=== PATIENT | female | born 1945 | race African-American/Black ===

== ENCOUNTER 2022-12-26 03:57 | Day surgery (SDC) | payer OTHER ==
[2022-12-19 18:03] VITALS: BMI 44.2
[2022-12-26] MEDS ORDERED: MIDAZOLAM HCL 2 MG/2 ML SINGLE DOSE VIAL ONE (07:59)
[2022-12-26] MEDS ORDERED: PROPOFOL 20 ML ONE (08:12)
[2022-12-26] MEDS ORDERED: LACTATED RINGERS SOLUTION 1,000 ML IV SCH (08:30)
[2022-12-26] MEDS ORDERED: ONDANSETRON 4 MG/2 ML VIAL IVPUSH PRN (08:30)
[2022-12-26] MEDS ORDERED: oxyCODONE HCL 5 MG TABLET PO PRN (08:30)
[2022-12-26 10:14] VITALS: RESP 20; TEMP 97.1
[2022-12-26 12:20] VITALS: BP 151/51; PULSE 60
== END 2022-12-26 12:15 | disposition home or self-care (01) ==
LOC: JASU-SURG 03:57
PROVIDERS: ATTEND Obstetrics & Gynecology
PROC: 0UDB8ZX Extraction of Endometrium, Via Natural or Artificial Opening Endoscopic, Diagnostic (ICD-10-PCS; principal; 2022-12-26 07:30)
DX: N95.0 Postmenopausal bleeding (principal)
CPT/HCPCS: 88305-TC; 93005; 93010; 94760

== ENCOUNTER 2024-06-02 09:04 | Observation (INO) | payer OTHER ==
[2024-06-02] MEDS: ACETAMINOPHEN 325 MG TABLET (FP) PO ONE (10:08)
[2024-06-02] MEDS ORDERED: MORPHINE SULFATE 2 MG/ML SYRINGE ONE (10:35)
[2024-06-02] MEDS: morphine CARPU-JECT 2 MG/1 ML DISP.SYRIN IVPUSH ONE (10:55)
[2024-06-02 11:11] LABS: BASO % 0.8 % (0-2.0); EOS % 1.7 % (0-4.5); HEMATOCRIT 35.5 % (32.4-45.2); HEMOGLOBIN 12.2 GM/dL (10.7-15.3); LYMPH % 9.2 % (8-40); MCH 28.7 pg (25.7-33.7); MCHC 34.3 g/dl (32.0-36.0); MEAN CELL VOLUME 83.9 fl (80-96); MEAN PLT VOLUME 7.5 fl (7.5-11.1); MONO % 8.8 % (3.8-10.2); NEUT % 79.5 % (42.8-82.8); PLATELET COUNT 433 10^3/uL (134-434); RBC 4.23 M/mm3 (3.60-5.2); RDW 14.2 % (11.6-15.6); WHITE BLOOD COUNT 10.3 K/mm3 (4.0-10.0)
[2024-06-02 11:27] LABS: INR 1.15 (0.83-1.09); PROTHROMBIN TIME (PATIENT) 12.9 SEC (9.7-13.0)
[2024-06-02 11:28] LABS: POTASSIUM 4.6 mmol/L (3.5-5.1)
[2024-06-02 11:29] LABS: ACTIVATED PTT 34.7 SECONDS (25.2-36.5)
[2024-06-02 11:30] LABS: ALBUMIN 3.3 g/dl (3.4-5.0); CALCIUM 9.6 mg/dL (8.5-10.1)
[2024-06-02 11:31] LABS: BLOOD UREA NITROGEN 34.8 mg/dL (7-18)
[2024-06-02 11:35] LABS: BILIRUBIN,TOTAL 0.6 mg/dL (0.2-1); TOT PROT 7.6 g/dl (6.4-8.2)
[2024-06-02 11:57] LABS: ERYTHROCYTE SEDIMENTATION RATE 69 mm/hr (0-30)
[2024-06-02 13:38] LABS: HIV INTERPRETATION NEGATIVE (NEGATIVE)
[2024-06-02] MEDS: VANCOMYCIN PREMIX 1.75 GM 1,750 MG/350 ML PIGGYBACK IVPB ONE (14:40)
[2024-06-02] MEDS ORDERED: PIPERACILLIN/TAZOB 3.375 GM 3.375 GM in DEXTROSE 5%-WATER - 50 ML IVPB SCH (14:45)
[2024-06-02] MEDS: PIPERACILLIN/TAZOB 3.375 GM 50 ML IVPB SCH (17:25)
[2024-06-02 17:30] VITALS: BMI 41.2
[2024-06-02] MEDS: ACETAMINOPHEN 325 MG TABLET (FP) PO PRN (17:34)
[2024-06-02] MEDS: HEPARIN NA (PORCINE) 5,000 UNITS/ML 1ML VIAL SQ SCH (22:54)
[2024-06-03] MEDS: ASPIRIN 81 MG CHEWABLE TABLETS PO SCH (09:10)
[2024-06-03] MEDS: NIFEdipine E.R 60 MG TABLET PO SCH (09:11)
[2024-06-03 09:25] LABS: HEMATOCRIT 31.3 % (32.4-45.2); HEMOGLOBIN 10.9 GM/dL (10.7-15.3); MCH 29.3 pg (25.7-33.7); MCHC 34.8 g/dl (32.0-36.0); MEAN CELL VOLUME 84.2 fl (80-96); MEAN PLT VOLUME 7.3 fl (7.5-11.1); PLATELET COUNT 394 10^3/uL (134-434); RBC 3.72 M/mm3 (3.60-5.2); RDW 14.3 % (11.6-15.6); WHITE BLOOD COUNT 9.9 K/mm3 (4.0-10.0)
[2024-06-03 09:46] LABS: POTASSIUM 3.4 mmol/L (3.5-5.1)
[2024-06-03] MEDS ORDERED: SPIRONOLACTONE 25 MG TABLET PO SCH (10:00)
[2024-06-03] MEDS ORDERED: CHLORTHALIDONE 50 MG TABLET PO SCH (10:00)
[2024-06-03 10:01] LABS: BLOOD UREA NITROGEN 40.4 mg/dL (7-18)
[2024-06-03 10:04] LABS: ALBUMIN 3.2 g/dl (3.4-5.0); CALCIUM 9.1 mg/dL (8.5-10.1)
[2024-06-03 10:07] LABS: CREATININE 2.1 mg/dL (0.55-1.3); TOT PROT 6.8 g/dl (6.4-8.2)
[2024-06-03 10:08] LABS: BILIRUBIN,TOTAL 0.7 mg/dL (0.2-1); MAGNESIUM 1.7 mg/dL (1.8-2.4); PHOSPHOROUS 3.9 mg/dL (2.5-4.9)
[2024-06-03] MEDS: BACITRACIN ZINC 15 GM TUBE TOPICAL OINTMENT TP SCH (15:43)
[2024-06-04 09:16] LABS: BASO % 0.4 % (0-2.0); EOS % 3.7 % (0-4.5); HEMATOCRIT 32.3 % (32.4-45.2); HEMOGLOBIN 10.6 GM/dL (10.7-15.3); MCHC 32.8 g/dl (32.0-36.0); MEAN CELL VOLUME 85.4 fl (80-96); MEAN PLT VOLUME 7.1 fl (7.5-11.1); MONO % 9.5 % (3.8-10.2); NEUT % 74.4 % (42.8-82.8); PLATELET COUNT 379 10^3/uL (134-434); RBC 3.78 M/mm3 (3.60-5.2); RDW 13.7 % (11.6-15.6); WHITE BLOOD COUNT 8.2 K/mm3 (4.0-10.0)
[2024-06-04 09:17] LABS: POTASSIUM 3.6 mmol/L (3.5-5.1)
[2024-06-04 09:22] LABS: CALCIUM 8.9 mg/dL (8.5-10.1)
[2024-06-04 09:23] LABS: ALBUMIN 2.9 g/dl (3.4-5.0); BLOOD UREA NITROGEN 32.2 mg/dL (7-18)
[2024-06-04 09:26] LABS: CREATININE 1.5 mg/dL (0.55-1.3)
[2024-06-04 09:27] LABS: BILIRUBIN,TOTAL 0.5 mg/dL (0.2-1)
[2024-06-04 09:28] LABS: TOT PROT 6.4 g/dl (6.4-8.2)
[2024-06-04 14:50] VITALS: BP 138/53; PULSE 77; RESP 20; TEMP 97.7
== END 2024-06-04 21:08 | disposition home or self-care (01) ==
LOC: JER 09:04 → JERBED 14:29 → J7W 15:45
PROVIDERS: ADMIT Internal Medicine; ATTEND Nurse Practitioner Family
PROC: 3E023GC Introduction of Other Therapeutic Substance into Muscle, Percutaneous Approach (ICD-10-PCS; principal; 2024-06-02)
PROC: 3E03329 Introduction of Other Anti-infective into Peripheral Vein, Percutaneous Approach (ICD-10-PCS; 2024-06-02)
PROC: 3E033NZ Introduction of Analgesics, Hypnotics, Sedatives into Peripheral Vein, Percutaneous Approach (ICD-10-PCS; 2024-06-02)
DX: L03.116 Cellulitis of left lower limb (principal); N17.9 Acute kidney failure, unspecified; I10 Essential (primary) hypertension; E66.9 Obesity, unspecified
CPT/HCPCS: 36415; 73610-TC-LT-FY; 73630-TC-LT; 80053; 82962; 83735; 84100; 85025; 85027; 85610; 85651; 85730; 86140; 86803; 87040; 87081; 87389; 96365; 96367; 96372; 96375; 97116-GP; 97161-GP; 99285-25; G0378; G0480; J1644; J3370

== ENCOUNTER 2024-06-13 15:14 | Inpatient (IN) | payer OTHER ==
[2024-06-13 17:59] LABS: HEMATOCRIT 33.7 % (32.4-45.2); HEMOGLOBIN 10.9 GM/dL (10.7-15.3); MCH 27.6 pg (25.7-33.7); MCHC 32.4 g/dl (32.0-36.0); MEAN CELL VOLUME 85.2 fl (80-96); MEAN PLT VOLUME 7.6 fl (7.5-11.1); PLATELET COUNT 457 10^3/uL (134-434); RBC 3.95 M/mm3 (3.60-5.2); RDW 14.3 % (11.6-15.6)
[2024-06-13 18:13] LABS: POTASSIUM 4.1 mmol/L (3.5-5.1)
[2024-06-13 18:15] LABS: ALBUMIN 3.1 g/dl (3.4-5.0); BLOOD UREA NITROGEN 35.7 mg/dL (7-18); CALCIUM 9.9 mg/dL (8.5-10.1)
[2024-06-13 18:19] LABS: CREATININE 1.6 mg/dL (0.55-1.3)
[2024-06-13 18:20] LABS: BILIRUBIN,TOTAL 0.6 mg/dL (0.2-1); TOT PROT 7.2 g/dl (6.4-8.2)
[2024-06-13 18:39] LABS: ANISOCYTOSIS 2+; MACROCYTOSIS 0
[2024-06-13] MEDS ORDERED: MORPHINE SULFATE 2 MG/ML SYRINGE ONE (19:26)
[2024-06-13] MEDS: morphine SULFATE 4 MG/ML VIAL IVPUSH ONE (19:40)
[2024-06-13] MEDS ORDERED: HEPARIN NA (PORCINE) 5,000 UNITS/ML 1ML VIAL ONE (22:29)
[2024-06-13] MEDS: HEPARIN NA (PORCINE) 5,000 UNITS/ML 1ML VIAL SQ SCH (22:44)
[2024-06-13] MEDS ORDERED: PIPERACILLIN/TAZOB 3.375 GM 3.375 GM/50 ML BAG IVPB ONE (23:41)
[2024-06-13] MEDS: PIPERACILLIN/TAZOB 3.375 GM 3.375 GM/50 ML BAG IVPB ONE (23:58)
[2024-06-13] MEDS: SODIUM CHLORIDE 1,000 ML IV SCH (23:58)
[2024-06-14] MEDS: SODIUM CHLORIDE 1,000 ML IV SCH ×2 (00:15→15:26)
[2024-06-14] MEDS: VANCOMYCIN PREMIX 1.5 GM 1,500 MG/300 ML BAG IVPB ONE (00:38)
[2024-06-14 02:17] LABS: EPI CELLS >36 /uL (0-25.1); HYALINE CASTS 66 /uL (0-3.1); PH,URINE 7.5 (5.0-8.0); URINE APPEARANCE CLOUDY; URINE BACTERIA >9,000 /uL (0-1359); URINE BILIRUBIN NEGATIVE (NEGATIVE); URINE COLOR YELLOW; URINE GLUCOSE (UA) NEGATIVE (NEGATIVE); URINE KETONE NEGATIVE (NEGATIVE); URINE LEUK ESTERASE 2+ (NEGATIVE); URINE NITRITE NEGATIVE (NEGATIVE); URINE PROTEIN 1+ (NEGATIVE); URINE RBC 7 /uL (0-23.9); URINE UROBILINOGEN 0.2 mg/dL (0.2-1.0); URINE WBC 56 /uL (0-25.8)
[2024-06-14] MEDS: ACETAMINOPHEN 1000 MG/100 ML BAG IVPB PRN (02:46)
[2024-06-14 02:50] VITALS: BMI 41.8
[2024-06-14 04:18] LABS: URINE CRYSTALS MODERATE /hpf
[2024-06-14] MEDS: PIPERACILLIN/TAZOB 3.375 GM 50 ML IVPB SCH (09:12)
[2024-06-14] MEDS: NIFEdipine E.R 60 MG TABLET PO SCH (09:12)
[2024-06-14 10:59] LABS: MCH 27.6 pg (25.7-33.7); MCHC 32.1 g/dl (32.0-36.0); MEAN PLT VOLUME 7.5 fl (7.5-11.1); PLATELET COUNT 438 10^3/uL (134-434); RBC 3.61 M/mm3 (3.60-5.2); WHITE BLOOD COUNT 8.8 K/mm3 (4.0-10.0)
[2024-06-14 11:40] LABS: POTASSIUM 3.8 mmol/L (3.5-5.1)
[2024-06-14 12:00] LABS: ALBUMIN 2.8 g/dl (3.4-5.0)
[2024-06-14 12:01] LABS: BLOOD UREA NITROGEN 34.2 mg/dL (7-18)
[2024-06-14 12:02] LABS: BILIRUBIN,TOTAL 0.6 mg/dL (0.2-1); PHOSPHOROUS 3.7 mg/dL (2.5-4.9)
[2024-06-14 12:04] LABS: CREATININE 1.5 mg/dL (0.55-1.3)
[2024-06-14 12:05] LABS: TOT PROT 6.2 g/dl (6.4-8.2)
[2024-06-14] MEDS: CEFTRIAXONE 1 G/50 ML PREMIX 50 ML IVPB SCH (15:26)
[2024-06-14] MEDS ORDERED: VANCOMYCIN PREMIX 1.5 GM 1,500 MG/300 ML BAG IVPB SCH (22:00)
[2024-06-15] MEDS: ACETAMINOPHEN 1000 MG/100 ML BAG IVPB PRN (07:37)
[2024-06-15 08:37] LABS: HEMATOCRIT 29.9 % (32.4-45.2); HEMOGLOBIN 9.9 GM/dL (10.7-15.3); MCH 27.9 pg (25.7-33.7); MCHC 33.2 g/dl (32.0-36.0); MEAN CELL VOLUME 83.9 fl (80-96); MEAN PLT VOLUME 7.2 fl (7.5-11.1); PLATELET COUNT 429 10^3/uL (134-434); RBC 3.56 M/mm3 (3.60-5.2); RDW 14.3 % (11.6-15.6); WHITE BLOOD COUNT 8.5 K/mm3 (4.0-10.0)
[2024-06-15] MEDS: VANCOMYCIN PREMIX 1.5 GM 1,500 MG/300 ML BAG IVPB SCH (09:26)
[2024-06-15] MEDS: PIPERACILLIN/TAZOB 3.375 GM 50 ML IVPB SCH (09:27)
[2024-06-15] MEDS: LORazepam 2 MG TABLET PO ONE (17:04)
[2024-06-15 19:05] LABS: INR 1.17 (0.83-1.09); PROTHROMBIN TIME (PATIENT) 13.4 SEC (9.7-13.0)
[2024-06-15 21:24] LABS: POTASSIUM 3.6 mmol/L (3.5-5.1)
[2024-06-15 21:25] LABS: BLOOD UREA NITROGEN 18.8 mg/dL (7-18); CALCIUM 8.9 mg/dL (8.5-10.1)
[2024-06-15 21:29] LABS: CREATININE 1.3 mg/dL (0.55-1.3)
[2024-06-16 08:10] LABS: BASO % 0.4 % (0-2.0); EOS % 5.1 % (0-4.5); HEMATOCRIT 32.1 % (32.4-45.2); HEMOGLOBIN 10.4 GM/dL (10.7-15.3); LYMPH % 10.6 % (8-40); MCH 27.6 pg (25.7-33.7); MCHC 32.5 g/dl (32.0-36.0); MEAN CELL VOLUME 84.8 fl (80-96); MONO % 9.2 % (3.8-10.2); NEUT % 74.7 % (42.8-82.8); PLATELET COUNT 442 10^3/uL (134-434); RBC 3.78 M/mm3 (3.60-5.2); RDW 14.4 % (11.6-15.6); WHITE BLOOD COUNT 9.3 K/mm3 (4.0-10.0)
[2024-06-16 08:28] LABS: POTASSIUM 3.5 mmol/L (3.5-5.1)
[2024-06-16 08:30] LABS: ALBUMIN 2.8 g/dl (3.4-5.0); BLOOD UREA NITROGEN 14.4 mg/dL (7-18); CALCIUM 9.4 mg/dL (8.5-10.1); MAGNESIUM 1.6 mg/dL (1.8-2.4)
[2024-06-16 08:34] LABS: BILIRUBIN,TOTAL 0.5 mg/dL (0.2-1); CREATININE 1.2 mg/dL (0.55-1.3); PHOSPHOROUS 3.1 mg/dL (2.5-4.9); TOT PROT 6.5 g/dl (6.4-8.2)
[2024-06-16] MEDS: ACETAMINOPHEN 1000 MG/100 ML BAG IVPB PRN (09:13)
[2024-06-16] MEDS ORDERED: LIDOCAINE HCL 1%, 10 MG/ML (20ML VIAL) ONE ×2 (14:34→16:16)
[2024-06-16] MEDS ORDERED: HEPARIN NA (PORCINE) 5,000 UNITS/ML 1ML VIAL ONE ×2 (14:34→16:16)
[2024-06-16] MEDS ORDERED: ONDANSETRON 4 MG/2 ML VIAL IVPUSH PRN ×2 (16:54→19:22)
[2024-06-16] MEDS ORDERED: LACTATED RINGERS SOLUTION 1,000 ML IV SCH ×2 (17:00→19:22)
[2024-06-16] MEDS ORDERED: PROPOFOL 60 ML ONE (17:30)
[2024-06-16] MEDS ORDERED: MIDAZOLAM HCL 2 MG/2 ML SINGLE DOSE VIAL ONE (17:30)
[2024-06-16] MEDS: LIDOCAINE HCL 1%, 10 MG/ML (20ML VIAL) INF ONE (18:00)
[2024-06-16] MEDS ORDERED: ACETAMINOPHEN 1000 MG/100 ML BAG IVPB PRN (19:22)
[2024-06-16] MEDS: MAGNESIUM 2GM/50ML STERILE WATER IVPB IVPB ONE ×2 (19:24→19:26)
[2024-06-16] MEDS ORDERED: CLOPIDOGREL BISULFATE 75 MG TABLET (FP) ONE (19:39)
[2024-06-16] MEDS ORDERED: ACETAMINOPHEN 325 MG TABLET (FP) PO PRN ×2 (19:45)
[2024-06-16] MEDS: CLOPIDOGREL BISULFATE 75 MG TABLET (FP) PO SCH (20:21)
[2024-06-16] MEDS: SODIUM CHLORIDE 1,000 ML IV SCH (20:29)
[2024-06-16] MEDS: HEPARIN NA (PORCINE) 5,000 UNITS/ML 1ML VIAL SQ SCH (22:16)
[2024-06-17] MEDS: oxyCODONE HCL 5 MG TABLET PO PRN ×2 (01:44→10:19)
[2024-06-17 09:00] VITALS: RESP 18
[2024-06-17 09:26] LABS: HEMATOCRIT 31.5 % (32.4-45.2); HEMOGLOBIN 10.2 GM/dL (10.7-15.3); MCH 27.8 pg (25.7-33.7); MCHC 32.5 g/dl (32.0-36.0); MEAN CELL VOLUME 85.5 fl (80-96); MEAN PLT VOLUME 7.1 fl (7.5-11.1); PLATELET COUNT 445 10^3/uL (134-434); RBC 3.68 M/mm3 (3.60-5.2); WHITE BLOOD COUNT 12.3 K/mm3 (4.0-10.0)
[2024-06-17 09:44] LABS: POTASSIUM 4.5 mmol/L (3.5-5.1)
[2024-06-17 09:46] LABS: CALCIUM 9.1 mg/dL (8.5-10.1)
[2024-06-17 09:47] LABS: BLOOD UREA NITROGEN 15.8 mg/dL (7-18)
[2024-06-17 09:50] LABS: CREATININE 1.2 mg/dL (0.55-1.3)
[2024-06-17] MEDS ORDERED: ASPIRIN 81 MG CHEWABLE TABLETS PO SCH (10:00)
[2024-06-17] MEDS: CEFTRIAXONE 1 G/50 ML PREMIX 50 ML IVPB SCH (10:21)
[2024-06-17] MEDS: ASPIRIN 81 MG CHEWABLE TABLETS PO SCH (10:22)
[2024-06-17] MEDS: NIFEdipine E.R 60 MG TABLET PO SCH (10:22)
[2024-06-17] MEDS: SILVER SULFADIAZINE 1% TOP CREAM 400 GM JAR TP SCH (10:39)
[2024-06-17] MEDS ORDERED: DOXYCYCLINE HYCLATE 100 MG CAPSULE PO SCH (12:00)
[2024-06-17] MEDS: DOXYCYCLINE HYCLATE 100 MG CAPSULE PO SCH (17:23)
[2024-06-17] MEDS: AMOX TR/POT CLAV 875MG/125MG TABLETS (FP) PO SCH (17:55)
[2024-06-18 14:38] VITALS: BP 133/51; PULSE 66; TEMP 97.5
== END 2024-06-18 17:23 | disposition home or self-care (01) | DRG 253 ==
LOC: JER 15:14 → JERBED 19:10 → J6S 06-14 02:05 → OBSVTOIN 06-16 14:25
PROVIDERS: ADMIT Internal Medicine; ATTEND Internal Medicine
PROC: X2K New Technology, Cardiovascular System, Bypass (ICD-10-PCS; principal; 2024-06-16 12:15)
DX: I73.9 Peripheral vascular disease, unspecified (principal); L03.116 Cellulitis of left lower limb; Z68.41 Body mass index [BMI] 40.0-44.9, adult; I70.292 Other atherosclerosis of native arteries of extremities, left leg; I77.1 Stricture of artery; I12.9 Hypertensive chronic kidney disease with stage 1 through stage 4 chronic kidney disease, or unspecified chronic kidney disease; N18.9 Chronic kidney disease, unspecified; E66.9 Obesity, unspecified; L97.529 Non-pressure chronic ulcer of other part of left foot with unspecified severity; I99.8 Other disorder of circulatory system
CPT/HCPCS: 36415; 73718-TC-LT; 75635-TC; 76000-TC-FY; 76775-TC; 80048; 80053; 81003; 82550; 82553; 83735; 84100; 85025; 85027; 85610; 85651; 86140; 87070; 87186; 87205; 93005; 93010; 93925-TC; 94760; 99285-25; C1760; G0378; G0463-25; J0131; J1644; Q9967

== ENCOUNTER 2024-08-15 10:53 | Observation (INO) | payer OTHER ==
[2024-08-15] MEDS ORDERED: ONDANSETRON 4 MG/2 ML VIAL ONE (13:05)
[2024-08-15 13:09] LABS: BASO % 0.3 % (0-2.0); EOS % 2.4 % (0-4.5); HEMATOCRIT 22.6 % (32.4-45.2); LYMPH % 16.2 % (8-40); MCH 23.3 pg (25.7-33.7); MCHC 30.4 g/dl (32.0-36.0); MEAN CELL VOLUME 76.8 fl (80-96); MEAN PLT VOLUME 6.9 fl (7.5-11.1); MONO % 11.3 % (3.8-10.2); NEUT % 69.8 % (42.8-82.8); PLATELET COUNT 419 10^3/uL (134-434); RBC 2.94 M/mm3 (3.60-5.2); RDW 18.2 % (11.6-15.6); WHITE BLOOD COUNT 8.1 K/mm3 (4.0-10.0)
[2024-08-15] MEDS: ONDANSETRON 4 MG/2 ML VIAL IVPUSH ONE (13:13)
[2024-08-15] MEDS: SODIUM CHLORIDE 0.9% 1000 ML INFUS.BAG IV ONE (13:13)
[2024-08-15 13:16] LABS: POTASSIUM 4.5 mmol/L (3.5-5.1)
[2024-08-15 13:18] LABS: CALCIUM 9.3 mg/dL (8.5-10.1)
[2024-08-15 13:19] LABS: BLOOD UREA NITROGEN 23.4 mg/dL (7-18)
[2024-08-15 13:20] LABS: HEMOGLOBIN 6.9 GM/dL (10.7-15.3)
[2024-08-15 13:22] LABS: CREATININE 1.5 mg/dL (0.55-1.3)
[2024-08-15 13:23] LABS: BILIRUBIN,TOTAL 0.3 mg/dL (0.2-1); TOT PROT 6.6 g/dl (6.4-8.2)
[2024-08-15 16:03] LABS: EPI CELLS 4 /uL (0-25.1); HYALINE CASTS 0 /uL (0-3.1); PH,URINE 6.5 (5.0-8.0); URINE APPEARANCE CLEAR; URINE BACTERIA >9,000 /uL (0-1359); URINE BILIRUBIN NEGATIVE (NEGATIVE); URINE COLOR YELLOW; URINE GLUCOSE (UA) NEGATIVE (NEGATIVE); URINE KETONE NEGATIVE (NEGATIVE); URINE LEUK ESTERASE 2+ (NEGATIVE); URINE NITRITE NEGATIVE (NEGATIVE); URINE PROTEIN TRACE (NEGATIVE); URINE RBC 30 /uL (0-23.9); URINE UROBILINOGEN 0.2 mg/dL (0.2-1.0); URINE WBC 373 /uL (0-25.8)
[2024-08-15] MEDS: CEFTRIAXONE 1 GM in DEXTROSE 5%-WATER - 100 ML IVPB ONE (17:15)
[2024-08-15] MEDS ORDERED: CEFTRIAXONE 1 G/50 ML PREMIX 50 ML IVPB ONE (17:16)
[2024-08-15] MEDS ORDERED: PANTOPRAZOLE SODIUM 40 MG/100 ML BAG IVPB ONE (21:56)
[2024-08-15] MEDS ORDERED: ATORVASTATIN CA 40 MG TABLET (FP) ONE (21:56)
[2024-08-15] MEDS: ATORVASTATIN CA 40 MG TABLET (FP) PO SCH (22:06)
[2024-08-15] MEDS: PANTOPRAZOLE SODIUM 40 MG VIAL IVPUSH SCH (22:07)
[2024-08-16 07:24] LABS: BASO % 0.2 % (0-2.0); EOS % 2.1 % (0-4.5); HEMATOCRIT 23.9 % (32.4-45.2); HEMOGLOBIN 7.4 GM/dL (10.7-15.3); LYMPH % 15.6 % (8-40); MCH 24.3 pg (25.7-33.7); MCHC 31.2 g/dl (32.0-36.0); MEAN CELL VOLUME 77.8 fl (80-96); MONO % 9.3 % (3.8-10.2); NEUT % 72.8 % (42.8-82.8); PLATELET COUNT 358 10^3/uL (134-434); RBC 3.07 M/mm3 (3.60-5.2); RDW 18.8 % (11.6-15.6)
[2024-08-16 07:36] LABS: INR 1.15 (0.83-1.09); PROTHROMBIN TIME (PATIENT) 12.9 SEC (9.7-13.0)
[2024-08-16 07:39] LABS: CALCIUM 8.7 mg/dL (8.5-10.1)
[2024-08-16 07:40] LABS: ALBUMIN 2.8 g/dl (3.4-5.0); MAGNESIUM 1.8 mg/dL (1.8-2.4)
[2024-08-16 07:43] LABS: CREATININE 1.4 mg/dL (0.55-1.3); PHOSPHOROUS 3.4 mg/dL (2.5-4.9)
[2024-08-16 07:44] LABS: BILIRUBIN,TOTAL 0.6 mg/dL (0.2-1)
[2024-08-16] MEDS ORDERED: PANTOPRAZOLE SODIUM 40 MG VIAL ONE (09:28)
[2024-08-16] MEDS: NIFEdipine E.R. 90 MG TABLET PO SCH (09:35)
[2024-08-16] MEDS ORDERED: COLLAGENASE CLOSTRIDIUM HIST. 30 GRAMS TUBE TP SCH (10:00)
[2024-08-17 10:13] LABS: BASO % 0.4 % (0-2.0); EOS % 2.9 % (0-4.5); HEMATOCRIT 25.1 % (32.4-45.2); HEMOGLOBIN 7.8 GM/dL (10.7-15.3); LYMPH % 12.5 % (8-40); MCH 24.4 pg (25.7-33.7); MEAN CELL VOLUME 78.8 fl (80-96); MEAN PLT VOLUME 6.8 fl (7.5-11.1); MONO % 8.8 % (3.8-10.2); NEUT % 75.4 % (42.8-82.8); PLATELET COUNT 372 10^3/uL (134-434); RBC 3.18 M/mm3 (3.60-5.2); RDW 18.2 % (11.6-15.6); WHITE BLOOD COUNT 9.5 K/mm3 (4.0-10.0)
[2024-08-17 10:42] LABS: POTASSIUM 3.9 mmol/L (3.5-5.1)
[2024-08-17 10:51] LABS: CALCIUM 8.9 mg/dL (8.5-10.1)
[2024-08-17 10:52] LABS: ALBUMIN 2.8 g/dl (3.4-5.0); BLOOD UREA NITROGEN 15.2 mg/dL (7-18); MAGNESIUM 1.9 mg/dL (1.8-2.4)
[2024-08-17 10:55] LABS: CREATININE 1.4 mg/dL (0.55-1.3)
[2024-08-17 10:56] LABS: BILIRUBIN,TOTAL 0.6 mg/dL (0.2-1); TOT PROT 6.2 g/dl (6.4-8.2)
[2024-08-17] MEDS: PANTOPRAZOLE 40 MG TABLET PO SCH (11:07)
[2024-08-17] MEDS: CEFTRIAXONE 1 G/50 ML PREMIX 50 ML IVPB SCH (11:08)
[2024-08-17 16:14] VITALS: BMI 39.5
[2024-08-17 19:34] VITALS: RESP 18
[2024-08-18 10:03] LABS: BASO % 0.3 % (0-2.0); EOS % 1.7 % (0-4.5); HEMATOCRIT 26.3 % (32.4-45.2); HEMOGLOBIN 8.2 GM/dL (10.7-15.3); LYMPH % 4.6 % (8-40); MCH 24.4 pg (25.7-33.7); MCHC 31.2 g/dl (32.0-36.0); MEAN CELL VOLUME 77.9 fl (80-96); MEAN PLT VOLUME 7.1 fl (7.5-11.1); MONO % 7.2 % (3.8-10.2); NEUT % 86.2 % (42.8-82.8); PLATELET COUNT 372 10^3/uL (134-434); RBC 3.38 M/mm3 (3.60-5.2); RDW 19.1 % (11.6-15.6); WHITE BLOOD COUNT 7.5 K/mm3 (4.0-10.0)
[2024-08-18 10:12] LABS: POTASSIUM 4.3 mmol/L (3.5-5.1)
[2024-08-18 10:15] LABS: CALCIUM 9.2 mg/dL (8.5-10.1)
[2024-08-18 10:16] LABS: BLOOD UREA NITROGEN 14.8 mg/dL (7-18)
[2024-08-18 10:19] LABS: CREATININE 1.6 mg/dL (0.55-1.3)
[2024-08-18 10:20] LABS: BILIRUBIN,TOTAL 0.5 mg/dL (0.2-1)
[2024-08-18 10:36] VITALS: PULSE 97
[2024-08-18] MEDS: ASPIRIN COATED 81 MG TABLET.EC PO SCH (10:44)
[2024-08-18 12:40] LABS: ALBUMIN 3.1 g/dl (3.4-5.0); TOT PROT 6.7 g/dl (6.4-8.2)
[2024-08-18 15:15] VITALS: BP 158/63; TEMP 98.1
[2024-08-18] MEDS: SODIUM CHLORIDE 0.9% 500 ML INFUS.BAG IV ONE (16:31)
== END 2024-08-18 17:29 | disposition home or self-care (01) ==
LOC: JER 10:53 → JERBED 16:08 → J6W 08-16 20:11
PROVIDERS: ADMIT Internal Medicine; ATTEND Internal Medicine
PROC: 3E0337Z Introduction of Electrolytic and Water Balance Substance into Peripheral Vein, Percutaneous Approach (ICD-10-PCS; 2024-08-15)
PROC: 3E03329 Introduction of Other Anti-infective into Peripheral Vein, Percutaneous Approach (ICD-10-PCS; 2024-08-15)
PROC: 0DJ08ZZ Inspection of Upper Intestinal Tract, Via Natural or Artificial Opening Endoscopic (ICD-10-PCS; principal; 2024-08-16 13:00)
DX: K92.2 Gastrointestinal hemorrhage, unspecified (principal); D64.9 Anemia, unspecified; K92.1 Melena; K44.9 Diaphragmatic hernia without obstruction or gangrene; K26.9 Duodenal ulcer, unspecified as acute or chronic, without hemorrhage or perforation; N39.0 Urinary tract infection, site not specified; I10 Essential (primary) hypertension; E78.5 Hyperlipidemia, unspecified; L97.529 Non-pressure chronic ulcer of other part of left foot with unspecified severity; Z79.02 Long term (current) use of antithrombotics/antiplatelets
CPT/HCPCS: 36415; 36430; 80048; 80053; 81003; 82272; 83605; 83690; 83735; 84100; 85025; 85610; 86850; 86900; 86901; 86922; 87086; 87186; 93005; 93010; 93306-TC; 94760; 96365; 96375; 99291; G0378; P9058

== ENCOUNTER 2025-01-04 05:21 | Day surgery (SDC) | payer OTHER ==
[~2025-01-04 05:21] MED LIST: ACETAMINOPHEN 325 MG TABLET (FP) PO PRN
[2025-01-04] MEDS ORDERED: BUPIVACAINE HCL/PF 0.75% 10 ML VIAL ONE (07:45)
[2025-01-04] MEDS ORDERED: PHENYLEPHRINE/KETOROLAC 4 ML VIAL IO ONE (07:45)
[2025-01-04] MEDS ORDERED: LIDOCAINE HCL/PF 2% SDV 5ML VIAL ONE (07:45)
[2025-01-04] MEDS ORDERED: LIDOCAINE HCL/PF 1% SDV 5ML VIAL ONE (07:45)
[2025-01-04] MEDS ORDERED: POVIDONE-IODINE 5% OPHTHALMIC PREP 30 ML SOLUTION ONE (07:45)
[2025-01-04 10:13] VITALS: BMI 36.6
[2025-01-04 10:16] VITALS: RESP 20; TEMP 98.4
[2025-01-04] MEDS ORDERED: PHENYLEPHRINE 2.5% OPTHALMIC DROP 2ML BOTTLE ONE (10:23)
[2025-01-04] MEDS ORDERED: KETOROLAC TROMETHAMINE 0.5% EYE DROP 1 DROP DROPS ONE (10:24)
[2025-01-04] MEDS ORDERED: CYCLOPENTOLATE HCL 1% OPHTH SOLN 2 ML BOTTLE ONE (10:24)
[2025-01-04] MEDS ORDERED: OFLOXACIN 0.3% OPHTHALMIC SOLUTION 5 ML BOTTLE ONE (10:24)
[2025-01-04] MEDS: CYCLOPENTOLATE HCL 1% OPHTH SOLN 2 ML BOTTLE OP SCH (10:33)
[2025-01-04] MEDS: PHENYLEPHRINE 2.5% OPHTH SOLN 15 ML BOTTLE OP SCH (10:34)
[2025-01-04] MEDS: TROPICAMIDE 1% OPHTH SOLN 15 ML BOTTLE OP SCH (10:34)
[2025-01-04] MEDS: KETOROLAC TROMETHAMINE 0.5% EYE DROP 1 DROP DROPS OP SCH (10:34)
[2025-01-04] MEDS: OFLOXACIN 0.3% OPHTHALMIC SOLUTION 5 ML BOTTLE OP SCH (10:35)
[2025-01-04] MEDS ORDERED: PROPOFOL 20 ML ONE (11:40)
[2025-01-04] MEDS ORDERED: MIDAZOLAM HCL 2 MG/2 ML SINGLE DOSE VIAL ONE (11:40)
[2025-01-04] MEDS: BUPIVACAINE HCL/PF 0.75% 10 ML VIAL RB ONE ×2 (13:05)
[2025-01-04] MEDS: LIDOCAINE HCL/PF 2% SDV 5ML VIAL INF ONE ×2 (13:05)
[2025-01-04] MEDS: POVIDONE-IODINE 5% OPHTHALMIC PREP 30 ML SOLUTION OS ONE ×2 (13:07)
[2025-01-04] MEDS: LIDOCAINE HCL 1% PRESERVATIVE FREE - 30ML VIAL IO ONE ×2 (13:14)
[2025-01-04] MEDS: TRYPAN BLUE 0.5 ML DISP.SYRIN IO ONE ×2 (13:15)
[2025-01-04] MEDS: BSS (NA/CA/MG/K) BALANCED SALT SOLUTION OPHTH SOLN 15 ML BOTTLE OS ONE ×2 (13:16)
[2025-01-04] MEDS: CHONDROITIN SU A/HYALUR SOD 1 KIT IO ONE ×2 (13:16)
[2025-01-04] MEDS: PHENYLEPHRINE/KETOROLAC 4 ML VIAL IO ONE (13:21)
[2025-01-04 14:46] VITALS: BP 152/70; PULSE 66
== END 2025-01-04 15:04 | disposition home or self-care (01) ==
LOC: JASU-SURG 05:21
PROVIDERS: ATTEND Ophthalmology
PROC: 08RK3JZ Replacement of Left Lens with Synthetic Substitute, Percutaneous Approach (ICD-10-PCS; principal; 2025-01-04 12:00)
DX: H26.9 Unspecified cataract (principal)
CPT/HCPCS: J1097; V2632